=== PATIENT | female | born 1960 | race Caucasian/White ===

== ENCOUNTER 2019-09-13 21:19 | Emergency (ER) | payer OTHER, SELFPAY ==
--- NOTE | ~2019-09-13 | CT_ITS ---
EXAMINATION: CT brain wo con INDICATION: Dizziness and headache COMPARISON: 07/06/2016 TECHNIQUE: Standard unenhanced head CT. The dose-length product (DLP) was 605.33 mGy-cm. The mA was a djusted according to patient size. Iterative reconstruction technique was employed. FINDINGS: There is no intracranial hemorrhage, acute infarction, or abnormal mass lesion. The ventric les are normal. There is no abnormal mass effect or midline shift. The silverio-white matter differentiat ion is normal. The basal cisterns are patent. The orbits are normal. The paranasal sinuses, mastoids and calvarium are normal. IMPRESSION: 1. No acute intracranial abnormality. Reviewed, dictated and finalized at location A.
[2019-09-13 21:22] VITALS: BP 178/98; PULSE 107; RESP 20; TEMP 36.8; O2SAT 100
--- NOTE | 2019-09-13 21:45 | ED.DIZZY ---
HPI - Dizziness General Chief Complaint: Dizziness Stated Complaint: dizzy Time Seen by Provider: 09/13/19 21:28 History of Present Illness HPI Narrative: The patient presents to the ED with her , for headache and dizziness. Her symptoms started in February and have been waxing and waning since then. The headache left and then she had a static sound in her head. Now she has both the static and the headache. The headache is on the right side of her head and is 5 out of 10. She is tried Excedrin for this and it did not help. The dizziness is like a lightheadedness, and comes and goes. She has high blood pressure and is on a lisinopril 20 hydrochlorothiazide 25mg. She has not had this medicine for 3 days, since her PCP wants to take her off of it and just use the lisinopril in the future. She has not worked since May. 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 She has not been sick, but complains of bilateral flank pain intermittently. She does not have a history of migraine headaches, there is no change in her vision, she has no focal weakness. MD elicited complaint: dizziness and lightheadedness Onset (ago): month(s) Timing: gradual onset Severity: moderate Description: lightheadedness Context: change in medication History of similar symptoms: Yes Exacerbating factors: nothing Relieving factors: nothing Associated symptoms: denies other symptoms Related Data Home Medications Medication Instructions Recorded Confirmed lisinopril-hydrochlorothiazide 1 tablet PO DAILY 09/13/19 vitamin [id number] acid katlyn SUBLINGUAL DAILY 09/13/19 Allergies Allergy/AdvReac Type Severity Reaction Status Date / Time metronidazole Allergy Unknown Nausea Verified 09/13/19 21:34 METRONIDAZOLE HCL Allergy Unknown Nausea Uncoded 09/13/19 21:34 Review of Systems Review of Systems: Narrative: CONSTITUTIONAL: Denies fever, chills, or sweats. EYES: Denies visual changes, redness, or discharge. ENT: Denies rhinorrhea, congestion, sore throat, or otalgia. CARDIOVASCULAR: Denies chest pain, palpitations, or edema. RESPIRATORY: Denies cough or dyspnea. GASTROINTESTINAL: Denies abdominal pain, nausea, vomiting, or diarrhea. GENITOURINARY: Denies dysuria or hematuria. SKIN: Denies rash or itching. MUSCULOSKELETAL: Denies back pain, joint pain, or myalgia. NEUROLOGIC: Denies numbness, or weakness. PSYCHIATRIC: Denies anxiety or depression. All systems reviewed & are unremarkable except as noted in HPI and below PMFSH Surgical History Surgical History (Updated 09/13/19 @ 21:51 by Peggy Chacon MD) H/O: hysterectomy Social History Social History (Updated 09/13/19 @ 21:51 by Peggy Chacon MD) Smoking status: Never smoker Alcohol intake: never Substance use: never Gender identity (if verbalized by the patient): Female Exam Narrative: Exam Narrative: GENERAL: Well-appearing, well-nourished, and in no acute distress. HEAD: Normocephalic, atraumatic. EYES: PERRLA and EOMI. ENT: Nares clear, no rhinorrhea or epistaxis. Mucous membranes moist. NECK: Supple. CHEST: Clear to auscultation. No respiratory distress. HEART: Regular rate and rhythm. No murmur heard. Normal peripheral pulses. ABDOMEN: Soft, nontender, nondistended, normal active bowel sounds. EXTREMITIES: Normal range of motion. No edema. SKIN: Warm, dry, no rash. NEURO: No focal deficits. Alert and oriented x3. PSYCH: Normal mood and affect. Const: General: healthy appearing and alert Orientation/consciousness: patient oriented x3 HENMT: Head: normal to inspection Eyes: Conjunctivae: conjunctivae normal Pupils: Equal, round and reactive pupils present EOM: EOMs intact bilaterally Resp: Effort & Inspection: normal respiratory effort Auscultation: clear to auscultation bilaterally Cardio: Rate: regular rate Rhythm: regular rhythm Skin: General skin exam: normal color Neuro: General: patient oriented x3, moves all extremities, no foca
[2019-09-13] MEDS: ACETAMINOPHEN 325 MG TABLET 650 MG PO (21:47)
[2019-09-13 21:57] LABS: Basophils Percent Auto 0.7 % (0.2-1.2); Eosinophils Absolute Auto 0.2 K/mm3 (0-0.3); Hematocrit 34.8 % (37.0-47.0); Immature Granulocyte Absolute 0.02 K/mm3 (0.00-0.031); Immature Granulocyte Percent A 0.5 % (0-0.5); Lymphocytes Absolute Auto 1.61 K/mm3 (0.9-3.2); Lymphocytes Percent Auto 37.4 % (18.3-44.2); Mean Corpuscular HGB Conc 31.6 g/dl (32-36); Mean Corpuscular Volume 85.3 fl (80-100); Mean Platelet Volume 11.1 fl (7.4-10.4); Monocytes Absolute Auto 0.3 K/mm3 (0.1-0.6); Monocytes Percent Auto 7.2 % (2.6-8.5); Neutrophils Absolute Auto 2.2 K/mm3 (1.3-6.7); Neutrophils Percent Auto 50.2 % (45.5-73.1); Platelet Count Result 190 k/mm3 (150-375); Red Blood Count 4.08 M/mm3 (4.2-5.4); Red Cell Distribution Width 13.9 % (11.5-14.5); White Blood Count 4.3 K/mm3 (4.5-10.0)
[2019-09-13 22:05] VITALS: BP 148/89; PULSE 75; RESP 20; O2SAT 99
--- NOTE | 2019-09-13 22:08 | ECG_ITS ---
Measurements Intervals [place] Rate: 106 P: 48 VA: 148 QRS: 15 QRSD: 81 T: 30 QT: 371 QTc: 493 Interpretive Statements SINUS TACHYCARDIA BASELINE ARTIFACT- V4-V6 ABNORMAL ECG Electronically Signed On 09-14-2019 7:50:01 CDT by David Jimenez D.O.
[2019-09-13 22:09] LABS: Alanine Aminotransferase 13 U/L (4-35); Albumin Level 4.4 g/dL (3.5-5.1); Alkaline Phosphatase 98 U/L (38-126); Aspartate Amino Transferase 28 U/L (14-36); Bilirubin,Total 0.2 mg/dL (0.2-1.3); Blood Urea Nitrogen 8 mg/dL (7-17); Calcium 9.1 mg/dL (8.4-10.2); Carbon Dioxide 25 mmol/L (22-30); Chloride 107 mmol/L (98-107); Estimated CRCL calculation 50 ml/min; Estimated Glomerular Filt Rate > 60; Glucose 115 mg/dL (65-105); Lipase 280 U/L (23-300); Potassium 3.3 mmol/L (3.4-5.0); Sodium 138 mmol/L (137-145)
[2019-09-13 22:18] LABS: Ethanol < 10 mg/dL (<10)
[2019-09-13] MEDS: POTASSIUM CHLORIDE 20 MEQ PACKET (FOR LIQUID) PO (22:28)
[2019-09-13] MEDS: lisinopriL 10 MG TABLET PO (22:28)
[2019-09-14 00:10] VITALS: BP 133/91; PULSE 75; RESP 20; O2SAT 100
[2019-09-14 01:35] VITALS: BP 120/81; PULSE 72; RESP 20; O2SAT 100
== END 2019-09-14 01:38 | disposition home or self-care (01) ==
PROVIDERS: Emergency Provider Emergency Medicine
DX: R42 Dizziness and giddiness (principal); E87.1 Hypo-osmolality and hyponatremia; I10 Essential (primary) hypertension; H93.19 Tinnitus, unspecified ear; R00.0 Tachycardia, unspecified
CPT/HCPCS: 36415; 70450; 80053; 80307; 83690; 85025; 93005; 99284; A9270